=== PATIENT | female | born 2000 | race Caucasian/White ===

== ENCOUNTER 2021-09-11 03:24 | Emergency (ER) | payer OTHER ==
[~2021-09-11] VITALS: Ht 162.6 cm; Wt 54.1 kg
[2021-09-11 04:02] VITALS: BP 128/79; PULSE 83; TEMP 98.7
== END 2021-09-11 04:02 | disposition home or self-care (01) ==
LOC: COL.ER 03:24
DX: S61.214A Laceration without foreign body of right ring finger without damage to nail, initial encounter (principal); W26.9XXA Contact with unspecified sharp object(s), initial encounter